=== PATIENT | male | born 1965 | race African-American/Black ===

== ENCOUNTER 2020-10-05 19:41 | Emergency (ER) | payer MEDICAID ==
[~2020-10-05] VITALS: Ht 188 cm; Wt 80.0 kg
[~2020-10-05 19:41] MED LIST: DIPH25CA83 PO; NAPR-1164 PO
[2020-10-05] MEDS ORDERED: LIDOCAINE HCL 1% 20ML VIAL (Pyxis) INJ INFIL ONE (20:45)
[2020-10-05] MEDS ORDERED: CLIN150C15 MT (20:50)
[2020-10-05 21:00] VITALS: BP 111/66
== END 2020-10-05 21:00 | disposition home or self-care (01) ==
LOC: ER 19:41
DX: R22.2 Localized swelling, mass and lump, trunk (principal); F12.10 Cannabis abuse, uncomplicated
CPT/HCPCS: 10060; 99282; J3490

== ENCOUNTER 2021-12-22 11:28 | Emergency (ER) | payer MEDICAID, OTHER ==
[~2021-12-22] VITALS: Ht 188 cm; Wt 73.0 kg
[~2021-12-22 11:28] MED LIST changes: +CLIN-116 MT
[2021-12-22 11:55] VITALS: BP 138/75
[2021-12-22] MEDS ORDERED: KETOROLAC 30MG/ML VIAL IM ONE (13:30)
[2021-12-22] MEDS ORDERED: NAPR-681 MT (14:54)
== END 2021-12-22 15:59 | disposition home or self-care (01) ==
LOC: ER 11:28
DX: S62.397A Other fracture of fifth metacarpal bone, left hand, initial encounter for closed fracture (principal); X58.XXXA Exposure to other specified factors, initial encounter; Y93.89 Activity, other specified; Y92.89 Other specified places as the place of occurrence of the external cause; Y99.8 Other external cause status; F12.10 Cannabis abuse, uncomplicated; Z98.890 Other specified postprocedural states
CPT/HCPCS: 29125; 73130; 96372; 99283; J1885

== ENCOUNTER 2022-06-08 20:47 | Emergency (ER) | payer OTHER ==
[~2022-06-08] VITALS: Ht 193 cm; Wt 67.5 kg
[~2022-06-08 20:47] MED LIST changes: +NAPR-681 MT
[2022-06-08] MEDS ORDERED: IBUPROFEN 600MG TABLET PO ONE (21:30)
[2022-06-08] MEDS ORDERED: HYDR-4001 MT (22:00)
[2022-06-08 22:15] VITALS: BP 122/81
== END 2022-06-08 22:17 | disposition home or self-care (01) ==
LOC: ER 20:47
DX: S62.307A Unspecified fracture of fifth metacarpal bone, left hand, initial encounter for closed fracture (principal); S62.393A Other fracture of third metacarpal bone, left hand, initial encounter for closed fracture; X58.XXXA Exposure to other specified factors, initial encounter; Y93.89 Activity, other specified; Y92.89 Other specified places as the place of occurrence of the external cause; Y99.8 Other external cause status; F12.10 Cannabis abuse, uncomplicated; Z79.899 Other long term (current) drug therapy
CPT/HCPCS: 29125; 73120; 99283

== ENCOUNTER 2022-10-02 13:40 | Emergency (ER) | payer OTHER ==
[~2022-10-02] VITALS: Ht 188 cm; Wt 69.0 kg
[~2022-10-02 13:40] MED LIST changes: +HYDR-4001 MT
[2022-10-02 14:58] LABS: BASOPHILS % 0.7 % (0.0-2.0); EOSINOPHILS % 0.4 % (0.0-5.0); HEMATOCRIT. 39.5 % (42.0-52.0); HEMOGLOBIN. 13.5 g/dL (14.0-18.0); LYMPHOCYTES % 21.2 % (20.0-50.0); MEAN CORPUSCULAR HEMOGLOBIN 30.4 pg (28.0-32.0); MONOCYTES % 8.2 % (2.0-8.0); NEUTROPHILS % 69.5 % (40.0-76.0); PLATELET 338 x1000/uL (130-400); RED BLOOD CELL COUNT 4.44 mill/uL (4.7-6.1); RED CELL DISTRIBUTION WIDTH 13.5 % (11.6-14.6)
[2022-10-02 15:01] LABS: CHLORIDE 104 mEq/L (98-107)
[2022-10-02 15:57] VITALS: BP 126/69
[2022-10-02] MEDS ORDERED: IBUPROFEN 600MG TABLET PO ONE (16:00)
[2022-10-02] MEDS ORDERED: IBUP-2029 MT (16:03)
== END 2022-10-02 16:25 | disposition home or self-care (01) ==
LOC: ER 14:16
DX: S63.501A Unspecified sprain of right wrist, initial encounter (principal); S63.502A Unspecified sprain of left wrist, initial encounter; R07.89 Other chest pain; F17.210 Nicotine dependence, cigarettes, uncomplicated; F12.90 Cannabis use, unspecified, uncomplicated; W19.XXXA Unspecified fall, initial encounter; Y93.89 Activity, other specified; Y92.89 Other specified places as the place of occurrence of the external cause; Y99.8 Other external cause status
CPT/HCPCS: 36415; 71045; 73130; 80053; 84484; 85025; 93005; 99285

== ENCOUNTER 2023-09-18 10:01 | Emergency (ER) | payer OTHER ==
[~2023-09-18] VITALS: Ht 182.9 cm; Wt 74.0 kg
[~2023-09-18 10:01] MED LIST changes: +IBUP-2029 MT
[2023-09-18 10:06] VITALS: TEMP 98.4; O2SAT 99
[2023-09-18] MEDS ORDERED: IBUP-2029 MT (11:22)
[2023-09-18 11:35] VITALS: BP 146/68; PULSE 97; RESP 20
[2023-09-18] MEDS: IBUPROFEN 600MG TABLET PO NR (11:35)
== END 2023-09-18 11:38 | disposition home or self-care (01) ==
LOC: ER 10:01
DX: M79.642 Pain in left hand (principal); F12.10 Cannabis abuse, uncomplicated
CPT/HCPCS: 73130; 99283

== ENCOUNTER 2023-09-27 20:13 | Emergency (ER) | payer OTHER ==
[~2023-09-27] VITALS: Ht 188 cm; Wt 73.0 kg
[2023-09-27 20:25] VITALS: O2SAT 98
[2023-09-28] MEDS ORDERED: HYDR-4001 MT (00:40)
[2023-09-28] MEDS ORDERED: NAPR-681 PO (00:40)
[2023-09-28] MEDS: KETOROLAC 60MG/2ML VIAL IM STA (00:53)
[2023-09-28] MEDS: HYDROCODONE/ACETAMINOPHEN 5/325MG TABLET PO STA (00:54)
[2023-09-28] MEDS: HYDROCODONE/ACETAMINOPHEN 5/325MG TABLET PO NR (01:00)
[2023-09-28] MEDS: KETOROLAC 60MG/2ML VIAL IM NR (01:00)
[2023-09-28 02:00] VITALS: BP 141/88; PULSE 98; RESP 16; TEMP 97.6
== END 2023-09-28 02:45 | disposition home or self-care (01) ==
LOC: ER 20:13
DX: S52.502A Unspecified fracture of the lower end of left radius, initial encounter for closed fracture (principal); G43.909 Migraine, unspecified, not intractable, without status migrainosus; F12.10 Cannabis abuse, uncomplicated; Z79.899 Other long term (current) drug therapy; Y08.89XA Assault by other specified means, initial encounter; Y93.89 Activity, other specified; Y92.89 Other specified places as the place of occurrence of the external cause; Y99.8 Other external cause status
CPT/HCPCS: 73110; 73130; 73630; 99284; 96372; J1885; Z7610 ×2